=== PATIENT | male | born 1950 | race Caucasian/White ===

== ENCOUNTER 2022-05-25 00:05 | Inpatient (IN) | payer MEDICARE ==
[~2022-05-25] VITALS: Ht 172.7 cm; Wt 74.5 kg
[~2022-05-25 00:05] MED LIST: ACET325 PO; ALBUIS INH; ASPI325 PO; ASPI81CH PO; ATOR80 PO; BENZ100A PO; CARV25 PO; CLOP75 PO; COMBIVENT RESPIM4 GM IH; DOCU100 PO; FAMO40 PO; LISI5 PO; NAC600 MG PO; PRED10 PO
[2022-05-25 00:26] LABS: Hematocrit 38.4 % (37.0-53.0); Hemoglobin 12.2 g/dL (13.5-17.5); Mean Corpuscular HGB Conc 31.8 g/dL (31.5-36.5); Mean Corpuscular Volume 98 fL (80-100); Mean Platelet Volume 10.7 fL (9.1-12.4); NRBC ABSOLUTE 0.02 K/mm3 (0.00-0.02); NRBC Auto 0.2 /100 WBC (0.0-0.2); Platelet Count 55 K/mm3 (150-400); RDW Coefficient Variation 14.5 % (11.7-14.2); RDW Standard Deviation 52.5 fL (35.1-46.3); Red Blood Cell Count 3.93 M/mm3 (4.30-5.90); White Blood Cell Count 11.14 K/mm3 (4.00-11.30)
[2022-05-25 00:28] LABS: PCO2 Arterial 47.8 mmHg (35-45); PO2 Arterial >500 mmHg (80-100); pH Blood Arterial 7.06 (7.35-7.45)
[2022-05-25 00:42] LABS: Magnesium, Blood 3.9 mg/dL (1.6-2.4)
[2022-05-25 01:05] LABS: Albumin, Blood 2.4 g/dL (3.4-5.0); Albumin/Globulin Ratio 0.8 (0.8-1.8); Bilirubin, Total 0.4 mg/dL (0.1-1.0); Bun/Creatinine Ratio 14.8 (12.0-20.0); Calcium, Blood 7.4 mg/dL (8.5-10.1); Creatinine, Blood 1.69 mg/dL (0.60-1.20); Globulin, Blood 2.9 g/dL (2.2-4.0); Potassium, Blood 6.1 mmol/L (3.5-5.5); Total Protein, Blood 5.3 g/dL (6.4-8.2)
[2022-05-25 01:20] LABS: Source, Urine Foley catheter
[2022-05-25 01:41] LABS: BAND PERCENT MAN 3 % (0-8); BASOPHILS PERCENT MAN 0 % (0-2); EOSINOPHILS ABSOLUTE MAN 0.33 K/mm3 (0.00-0.68); EOSINOPHILS PERCENT MAN 3 % (0-6); LYMPHOCYTES ABSOLUTE MAN 4.23 K/mm3 (0.84-5.20); LYMPHOCYTES PERCENT MAN 38 % (21-46); METAMYELOCYTE ABSOLUTE MAN 0.11 K/mm3 (0.00-0.00); METAMYELOCYTE PERCENT MAN 1 % (0-0); MONOCYTES ABSOLUTE MAN 0.44 K/mm3 (0.16-1.47); MONOCYTES PERCENT MAN 4 % (4-13); NEUTROPHILS ABSOLUTE MAN 6.01 K/mm3 (1.96-9.15); SEG NEUTROPHILS PERCENT MAN 51 % (41-73); TOTAL CELLS COUNTED 100
[2022-05-25 01:42] LABS: U Amphetamine Screen Not Detected; U Barbituate Screen Not Detected; U Benzodiazapine Screen Not Detected; U Buprenorphine Screen Not Detected; U Cannabinoids Screen Not Detected; U Cocaine Screen Not Detected; U Methadone Screen Not Detected; U Methamphetamine Screen Not Detected; U Opiates Screen Not Detected; U Oxycodone Screen Not Detected; U Phencyclidine Screen Not Detected; U Propoxyphene Screen Not Detected
[2022-05-25 01:51] LABS: Appearance, Urine Cloudy (Clear); Bilirubin, Urine Neg (Neg); Blood, Urine 3+ (Neg); Color, Urine Yellow (P-Yellow); Glucose Qualitative, Urine Neg (Neg); Ketones, Urine Neg (Neg); Leukocyte Esterase, Urine Neg (Neg); Nitrite, Urine Neg (Neg); Protein, Urine 3+ (Neg); Urobilinogen, Urine NORM (Normal)
[2022-05-25 02:08] LABS: Bacteria Few /hpf; Red Blood Cells, Urine 25-50 /hpf (0-2); Spermatozoa Many /hpf; Squamous Epithelial Cells Few /hpf (Few); Transitional Epithelial Cells Few /hpf (0-Rare)
[2022-05-25 03:32] LABS: PCO2 Arterial 45.8 mmHg (35-45); PO2 Arterial 96.4 mmHg (80-100); pH Blood Arterial 7.23 (7.35-7.45)
[2022-05-25 06:08] LABS: Hematocrit 43.5 % (37.0-53.0); Mean Corpuscular HGB 30.7 pg (26.0-34.0); Mean Corpuscular HGB Conc 32.2 g/dL (31.5-36.5); Mean Corpuscular Volume 95 fL (80-100); Mean Platelet Volume 10.5 fL (9.1-12.4); Platelet Count 113 K/mm3 (150-400); RDW Coefficient Variation 14.6 % (11.7-14.2); RDW Standard Deviation 51.2 fL (35.1-46.3); Red Blood Cell Count 4.56 M/mm3 (4.30-5.90); White Blood Cell Count 16.44 K/mm3 (4.00-11.30)
[2022-05-25 06:46] LABS: Albumin, Blood 2.9 g/dL (3.4-5.0); Albumin/Globulin Ratio 0.9 (0.8-1.8); Bilirubin, Total 0.5 mg/dL (0.1-1.0); Bun/Creatinine Ratio 11.9 (12.0-20.0); Calcium, Blood 8.3 mg/dL (8.5-10.1); Creatinine, Blood 2.44 mg/dL (0.60-1.20); Globulin, Blood 3.3 g/dL (2.2-4.0); Potassium, Blood 6.3 mmol/L (3.5-5.5); Total Protein, Blood 6.2 g/dL (6.4-8.2)
--- NOTE | 2022-05-25 07:15 | NUR ---
PT INTUBATED AND SEDATED. TR BAND TO R RADIAL SITE WITH ARMBOARD, SITE CONFIRMED WITH NOC RN WITH BSR. TEMP PACER TO R GROIN, RATE 60, MA 5, MV 10. 100% PACED. ON EPI GTT, AMIO GTT, PROPOFOL AND FENTANYL. ECHO BEING DONE NOW.
--- NOTE | 2022-05-25 07:28 | NUR ---
CHRISTIAN VARGAS CALLED ABOUT CRITICAL LABS: TROP 395 AND K+ 6.3. ORDERED MEDS TO SHIFT PTS K+
[2022-05-25 07:56] LABS: BAND PERCENT MAN 2 % (0-8); BASOPHILS PERCENT MAN 0 % (0-2); EOSINOPHILS ABSOLUTE MAN 0.32 K/mm3 (0.00-0.68); EOSINOPHILS PERCENT MAN 2 % (0-6); LYMPHOCYTES ABSOLUTE MAN 1.64 K/mm3 (0.84-5.20); LYMPHOCYTES PERCENT MAN 10 % (21-46); MONOCYTES ABSOLUTE MAN 0.49 K/mm3 (0.16-1.47); MONOCYTES PERCENT MAN 3 % (4-13); NEUTROPHILS ABSOLUTE MAN 13.97 K/mm3 (1.96-9.15); SEG NEUTROPHILS PERCENT MAN 83 % (41-73); TOTAL CELLS COUNTED 100
[2022-05-25 11:33] LABS: Bun/Creatinine Ratio 11.8 (12.0-20.0); Calcium, Blood 7.9 mg/dL (8.5-10.1); Creatinine, Blood 2.55 mg/dL (0.60-1.20)
--- NOTE | 2022-05-25 11:45 | NUR ---
PT WAS SEDATED WITH FENTANYL AND PROPOFOL THIS AM. TURNED SEDATION OFF AND PT WOKE UP QUICKLY REACHING FOR ETT. PT STARTED GRIPPING HANDS ON COMMAND. EXTUBATED AROUND 0900 TO 4L NC. PT DOING WELL AND O2 TITRATED DOWN TO 2L. TR BAND TO R RADIAL. SITE HAS SOME BRUISING ABOVE AND BELOW THE BAND. IT ALSO APPEARS SWOLLEN BUT NOT TIGHT. CONFIRMED SITE WITH OFF GOING RN THIS AM DURING BSR. AT 0730 ATTEMPTED TO TAKE 1ML OF AIR OUT OF BAND BUT STARTED BLEEDING IMMEDIATELY. REPLACED 1ML OF AIR. DR. MOTTA TO BEDSIDE THIS AM AND VISUALIZED SITE WELL. INSTRUCTED TO WAIT AN HOUR BEFORE TRYING TO DEFLATE AGAIN, ALSO TO HOLD LOVENOX THIS AM. ARM BOARD IN PLACE WELL TO KEEP WRIST STRAIGHT. PT IS FORGETFUL ASKING SAME QUESTIONS OVER AND OVER. HAS SOME PAIN IN CHEST. DR. DALEY AWARE AND FENTANYL ORDERED. GOOD OUTCOME WITH FENTANYL. SISTER IN LAW AT BEDSIDE. SON VINNY UPDATED VIA PHONE.
--- NOTE | 2022-05-25 17:09 | NUR ---
CALLED DR. RUELAS ABOUT SOME BEATS FAILING TO SENSE WITH PACEMAKER. DR. RUELAS AT BEDSIDE AND ADJUSTED TEMP PACER TO 50 RATE, 10 OUTPUT, 5 SENSE.
--- NOTE | 2022-05-25 18:05 | NUR ---
SUMMARY PT EXTUBATED THIS AM. A/O TO PERSON AND FAMILY. WILL ASK THE SAME QUESTION OF "WHAT HAPPENED" OVER AND OVER BUT SEEMS TO BE SLOWING DOWN THIS EVENING. HAS SOME PAIN IN CHEST FROM CPR. FENTANYL GIVEN FOR PAIN WITH GOOD RESULT. PT ALSO HAS LARGE HERNIA TO L GROIN THAT BOTHERS HIM SOMETIMES. PT STATES IT IS NOT BOTHERING HIM ANY MORE THAN USUAL AT HOME. TEMP PACER TO R GROIN THAT DR. RUELAS ADJUSTED TODAY. R RADIAL ACCESS SITE IS STABLE AFTER TR BAND WAS REMOVED. ARM BOARD STILL IN PLACE. SOME BRUISING IN THUMB AND JUST ABOVE WHERE TR BAND WAS. SPO2 PROBE ON R HAND WITH GOOD WAVEFORM. PULSES PALPABLE. OFF CARDIAC GTTS. FAMILY AT BEDSIDE TODAY. SON VINNY UPDATED VIA PHONE.
--- NOTE | 2022-05-25 18:59 | NUR ---
RESP RATE INCREASING, LS CRACKLES WITH SLIGHT WHEEZE, AND UO DECREASED. SPOKE WITH DR. DALEY WHO IS ORDERING LASIX.
[2022-05-25 19:53] LABS: Base Excess Venous -4.1 mmol/L; Bicarbonate Venous 19.7 mmol/L (24.0-30.0); PCO2 Venous 54.5 mmHg (38-42); pH Blood Venous 7.24 (7.34-7.37)
--- NOTE | 2022-05-26 03:57 | NUR ---
PT CONFUSED THROUGHOUT THE NIGHT. FORGETTING SITUATION AND WHY HE CAME INTO THE HOSPITAL. NEEDING FREQUENT REMINDING AND REORIENTATION. VSS. AMIO GTT RESTARTED DUE TO PT APSIRATING WITH PO INTAKE. K+ STILL INCREASED AT START OF SHIFT SEE CHART. SHIFTED PT AGAIN AROUND 2100. NO OTHER SIGNIFICNANT EVENTS OR CHANGES THROUGHOUT THE NIGHT. VSS. PT IN NSR. DENIES CP. PACER STILL INTACT AND CONDUCTING/SENSING.
[2022-05-26 04:19] LABS: BASOPHILS ABSOLUTE AUTO 0.02 K/mm3 (0.00-0.23); BASOPHILS PERCENT AUTO 0 % (0-2); Hematocrit 36.7 % (37.0-53.0); Hemoglobin 12.7 g/dL (13.5-17.5); LYMPHOCYTES ABSOLUTE AUTO 0.58 K/mm3 (0.84-5.20); LYMPHOCYTES PERCENT AUTO 5 % (21-46); MONOCYTES PERCENT AUTO 5 % (4-13); Mean Corpuscular HGB 30.9 pg (26.0-34.0); Mean Corpuscular HGB Conc 34.6 g/dL (31.5-36.5); Mean Platelet Volume 11.8 fL (9.1-12.4); Platelet Count 58 K/mm3 (150-400); RDW Coefficient Variation 14.6 % (11.7-14.2); RDW Standard Deviation 47.8 fL (35.1-46.3); Red Blood Cell Count 4.11 M/mm3 (4.30-5.90); White Blood Cell Count 10.78 K/mm3 (4.00-11.30)
[2022-05-26 04:36] LABS: EOSINOPHILS PERCENT AUTO 0 % (0-6); IMMATURE GRAN ABSOLUTE AUTO 0.03 K/mm3 (0.00-0.10); IMMATURE GRAN PERCENT AUTO 0 % (0-1); Mean Corpuscular Volume 89 fL (80-100); NEUTROPHILS ABSOLUTE AUTO 9.65 K/mm3 (1.96-9.15); NEUTROPHILS PERCENT AUTO 90 % (41-73)
[2022-05-26 04:52] LABS: Albumin, Blood 2.2 g/dL (3.4-5.0); Albumin/Globulin Ratio 0.8 (0.8-1.8); Bilirubin, Total 0.9 mg/dL (0.1-1.0); Bun/Creatinine Ratio 13.3 (12.0-20.0); Calcium, Blood 8.1 mg/dL (8.5-10.1); Creatinine, Blood 3.54 mg/dL (0.60-1.20); Globulin, Blood 2.9 g/dL (2.2-4.0); Potassium, Blood 5.4 mmol/L (3.5-5.5); Total Protein, Blood 5.1 g/dL (6.4-8.2)
--- NOTE | 2022-05-26 08:58 | NUR ---
ASSUMED CARE PT IS ALERT AND ORIENTED X4. MAP >65 W/ HR IN THE 70-80'S. SPO2 >92% ON 2L NC. PT HAS CLEAR LUNG SOUNDS, HYPOACTIVE BOWEL TONES AND A LARGE INGUINAL HERNIA THAT HAS MILD PAIN PER PT. TEMPORARY PACEMAKER TO BE DC'D. AMIODARONE INFILTRATION NOTED; PHARMACY CONSULTED/DR CHAPA AWARE; HYALURONIDASE TO BE ADMINISTERED PER DR CHAPA/PHARMACY. PT HAS INCREASED WOB/RR SINCE INITIAL ASSUMPTION OF CARE AND IS NOTED TO NOT TOLERATE LYING SUPINE.
[2022-05-26 11:34] LABS: Albumin, Blood 2.2 g/dL (3.4-5.0); Anion Gap 9 mmol/L (6-16); Blood Urea Nitrogen 53 mg/dL (8-24); Bun/Creatinine Ratio 13.9 (12.0-20.0); CO2, Blood 21 mmol/L (21-32); Calcium, Blood 7.6 mg/dL (8.5-10.1); Chloride, Blood 109 mmol/L (98-108); Creatinine, Blood 3.81 mg/dL (0.60-1.20); Glomerular Filtration Rate 16 (60-); Glucose, Blood 118 mg/dL (70-99); Phosphorus, Blood 4.5 mg/dL (2.5-4.9); Potassium, Blood 5.7 mmol/L (3.5-5.5); Sodium, Blood 139 mmol/L (136-145)
[2022-05-26 12:14] LABS: PCO2 Arterial 39.5 mmHg (35-45); PO2 Arterial 70.4 mmHg (80-100); pH Blood Arterial 7.32 (7.35-7.45)
--- NOTE | 2022-05-26 15:56 | NUR ---
UPDATE/SHEATH REMOVAL PT IS ALERT AND ORIENTED W/ A BP OF 105/56. PT'S SHEATH WAS REMOVED W/ NO ISSUES. NO HEMATOMA, OOZING, OR C/O OF PAIN FROM SITE. WHILE PALPATING THE PT'S STOMACH THE PT NOTED THAT THERE WAS SOME MILD PAIN IN THE BOTTOM RIGHT QUADRANT/SIDE OF STOMACH.
--- NOTE | 2022-05-26 17:29 | NUR ---
SHIFT SUMMARY PT IS A&O X4. SPO2 >92% ON 2L NC; MAP >65. PT HAS C/O OF CP THAT IS DULL/LOCALIZED AND GETS WORSE W/ BREATHING; PT ALSO EXPIRIENCES PAIN W/ HIS INGUINAL HERNIA AND SOME MILD PAIN IN THE BOTTOM RIGHT QUADRANT/DISTAL STOMACH. CLEAR LUNG SOUNDS; HYPOACTIVE BOWEL TONES. SOME INCREASED WOB NOTED A FEW HOURS INTO THE AM; DR ORTEGA NOTIFIED AND CHEST XRAY ORDERED. WOB HAS SINCE BECOME LESS LABORED. PACER/SHEATH PULLED TODAY BY HVAC ENGINEER RN PER DR RUELAS'S ORDER; NO OOZING, HEMATOMA, OR NEW BRUISING NOTED. TR BAND SITE ABSENT OF OOZING, HEMATOMA, OR NEW BRUISING.
--- NOTE | 2022-05-26 23:36 | NUR ---
ASSUMPTION OF CARE/ASSESSMENT: ASSUMED CARE OF PT AT 1900. PT IS AWAKE AND A&O AT THIS TIME. PT IS PLEASANT AND SOFT SPOKEN, ABLE TO PARTICIPATE IN CONVERSATION APPROPRIATELY AND VOICE NEEDS. PERRLA BILATERALLY. PT CURRENTLY ON 4L VIA NC WITH RR 18-20 AND SPO2 98<; BREATHING IS EVEN, UNLABORED. PT HR IN THE 80'S WITH SBP 100-110; C/O CHEST PAIN THAT FEELS LIKE CONSTANT ACHE, R/T CHEST COMPRESSION. PT HAS HYPERACIVE BS; ABD MILDLY DISTENDED WITH TENDERNESS IN RLQ. PT DID HAVE LIQUID BM AROUND 2044 THAT RELIEVED THIS PAIN. PT HAS TEMP LUI IN PLACE AND DRAINING TO GRAVITY; URINE LIGHT YELLOW, CLEAR. 24-HOUR URINE COLLECTION IN PROGRESS. PT HAS 18G TO LAC AND 20G TO LFA. BICARB GTT @ 50 MLS/HR. BED LOWERED, CALL LIGHT, WILL CONTINUE TO MONITOR.
[2022-05-27 04:49] LABS: Hematocrit 29.7 % (37.0-53.0); Hemoglobin 10.1 g/dL (13.5-17.5); Mean Corpuscular HGB 30.7 pg (26.0-34.0); Mean Corpuscular Volume 90 fL (80-100); Mean Platelet Volume 11.9 fL (9.1-12.4); RDW Coefficient Variation 14.6 % (11.7-14.2); Red Blood Cell Count 3.29 M/mm3 (4.30-5.90); White Blood Cell Count 11.42 K/mm3 (4.00-11.30)
[2022-05-27 05:12] LABS: Alanine Aminotransfer (ALT/SGP 150 U/L (12-78); Albumin, Blood 1.8 g/dL (3.4-5.0); Albumin/Globulin Ratio 0.7 (0.8-1.8); Alk Phos 58 U/L (50-136); Anion Gap 10 mmol/L (6-16); Aspartate Aminotrans (AST/SGOT 78 U/L (12-37); Bilirubin, Total 0.9 mg/dL (0.1-1.0); Blood Urea Nitrogen 69 mg/dL (8-24); Bun/Creatinine Ratio 16.1 (12.0-20.0); CO2, Blood 25 mmol/L (21-32); Calcium, Blood 6.6 mg/dL (8.5-10.1); Chloride, Blood 105 mmol/L (98-108); Creatinine, Blood 4.28 mg/dL (0.60-1.20); Globulin, Blood 2.7 g/dL (2.2-4.0); Glomerular Filtration Rate 14 (60-); Glucose, Blood 129 mg/dL (70-99); Magnesium, Blood 2.1 mg/dL (1.6-2.4); Potassium, Blood 4.3 mmol/L (3.5-5.5); Sodium, Blood 140 mmol/L (136-145); Total Protein, Blood 4.5 g/dL (6.4-8.2)
[2022-05-27 05:26] LABS: Platelet Count 33 K/mm3 (150-400)
[2022-05-27 05:36] LABS: BAND PERCENT MAN 24 % (0-8); BASOPHILS PERCENT MAN 0 % (0-2); EOSINOPHILS PERCENT MAN 0 % (0-6); LYMPHOCYTES ABSOLUTE MAN 0.11 K/mm3 (0.84-5.20); LYMPHOCYTES PERCENT MAN 1 % (21-46); METAMYELOCYTE ABSOLUTE MAN 0.22 K/mm3 (0.00-0.00); METAMYELOCYTE PERCENT MAN 2 % (0-0); MONOCYTES ABSOLUTE MAN 0.22 K/mm3 (0.16-1.47); MONOCYTES PERCENT MAN 2 % (4-13); NEUTROPHILS ABSOLUTE MAN 10.84 K/mm3 (1.96-9.15); SEG NEUTROPHILS PERCENT MAN 71 % (41-73); TOTAL CELLS COUNTED 100
--- NOTE | 2022-05-27 06:23 | NUR ---
SHIFT SUMMARY: NO ACUTE CHANGES THIS SHIFT. VSS THROUGHOUT THE NIGHT. PT SLEPT ON AND OFF THROUGHOUT THE NIGHT. PT HAD COUGHING FIT STARTING AROUND 0300; PT STATES THAT CHEST PAIN INCREASES TO 9/10 WHEN COUGHING. PT MEDICATED PER EMAR WITH 25 MCG FENTANYL AND PT RESPONDED WELL. AT 0400 ASSESSMENT PT DEVELOPED RHONCI IN RLL; SPO2 REMAINED 98< AND RR 20-24. DR ROBBINS AT BEDSIDE TO ASSESS PT @ 0620; VERBAL ORDERS RECIEVED, SEE EMAR. PT CONTINUES TO USE CALL LIGHT APPROPRIATELY, BED LOWERED, WILL CONTINUE TO MONITOR UNTIL ONCOMING RN ARRIVES.
--- NOTE | 2022-05-27 07:30 | NUR ---
ASSUMED CARE OF PT THIS AM PT. ALERT AND ORIENTED THIS AM. PT HAS OCCASIONAL NON PRODUCTIVE WET COUGH. SPLINTING WITH PILLOW BUT STILL HAVING PAIN 10/10 WHEN COUGHING. PT. REMAINS NPO AT THIS TIME, AWAITING SPEECH THERAPY. WET SWABS PROVIDED. PT. NEEDING ASSISTANCE TO SHIFT HIPS IN BED FOR COMOFORT. LUI DRAINING TO GRAVITY, CURRENTLY HAS 24HR URINE IN PROGRESS. ALL NEEDS MET AT THIS TIME.
[2022-05-27 09:51] LABS: Hematocrit 32.7 % (37.0-53.0); Mean Corpuscular HGB 30.5 pg (26.0-34.0); Mean Corpuscular HGB Conc 33.6 g/dL (31.5-36.5); Mean Corpuscular Volume 91 fL (80-100); Mean Platelet Volume 11.8 fL (9.1-12.4); RDW Coefficient Variation 14.7 % (11.7-14.2); RDW Standard Deviation 48.5 fL (35.1-46.3); Red Blood Cell Count 3.61 M/mm3 (4.30-5.90); White Blood Cell Count 9.26 K/mm3 (4.00-11.30)
[2022-05-27 09:58] LABS: Platelet Count 38 K/mm3 (150-400)
[2022-05-27 10:12] LABS: BAND PERCENT MAN 28 % (0-8); BASOPHILS PERCENT MAN 0 % (0-2); EOSINOPHILS PERCENT MAN 0 % (0-6); METAMYELOCYTE ABSOLUTE MAN 0.18 K/mm3 (0.00-0.00); METAMYELOCYTE PERCENT MAN 2 % (0-0); MONOCYTES ABSOLUTE MAN 0.18 K/mm3 (0.16-1.47); MONOCYTES PERCENT MAN 2 % (4-13); MYELOCYTE ABSOLUTE MAN 0.09 K/mm3 (0.00-0.00); MYELOCYTE PERCENT MAN 1 % (0-0); NEUTROPHILS ABSOLUTE MAN 8.79 K/mm3 (1.96-9.15); SEG NEUTROPHILS PERCENT MAN 67 % (41-73); TOTAL CELLS COUNTED 100
--- NOTE | 2022-05-27 10:49 | NUR ---
UDPATE DR. CHAPA AT BEDSIDE TO EVAL, CHEST XRAY ORDERED. PT. CLEARED BY SPEECH THERAPY FOR THICKEND LIQUIDS AND MEAL TRAY ORDERED.
[2022-05-27 12:18] LABS: Protein, Urine Quantitative 18.6 mg/dL (0.0-11.9)
--- NOTE | 2022-05-27 18:05 | NUR ---
SHIFT SUMMARY PT. FAMILY AT BEDSIDE T/O THE DAY. NO ACUTE CHANGES TODAY. O2 TITRATED DOWN TO 4LNC, PT PAINFUL WITH MOVEMENT, PO PAIN MEDICATION STARTED TODAY TO HELP WITH PAIN AND CONTINUES WITH FENTANYL PRN. 24HR URINE COMPLETED TODAY. MULTIPLE LOOSE BMS TODAY. LUI REMAINS IN PLACE, DRIANING TO GRAVITY. CALL LIGHT IN REACH. ALL NEEDS MET AT THIS TIME, REPORT TO ONCOMING HIPOLITO
--- NOTE | 2022-05-27 19:56 | NUR ---
ASSUMPTION OF CARE/ASSESSMENT: ASSUMED CARE OF PT AT 1900. PT IS ASLEEP IN BED AND WAKES EASILY; A&O X 4 AND ABLE TO PARTICIPATE IN CONVERSATION APPROPRIATELY, SOFT SPOKEN. PT USING CALL LIGHT APPROPRIATELY AT THIS TIME. PT CURRENTLY ON NC @ 2L WITH SPO2 90<; HX COPD. RR 20-26, CHEST PAIN 5/10 R/T CHEST COMPRESSIONS. CHEST PAIN INCREASES TO 9/10 WHEN COUGHING, PT COACHED ON SPLINTING COUGHING WITH PILLOW AND HELPS TO RELIEVE SOME OF THE PAIN. PT HAS SHALLOW BREATHS, BUT EVEN WITH CLEAR LUNG SOUNDS. PT HR 70'S AND SBP 100'S. ABD IS ROUND, SLIGHTLY FIRM BUT NOT TENDER; PT HAS CHRONIC INGUNIENAL HERNIA THAT DOES NOT CAUSE HIM MUCH PAIN. HYPOACTIVE BS IN ALL QUADRANTS. PT USING BED KIDD FOR BOWEL MOVEMENTS. PT HAS TEMP LUI THAT IS IN PATENT AND DRAINING TO GRAVITY. ULTRASOUND COMPLETED AT 1999 AND PT TO RESUME MECHANICAL SOFT/THICKEN LIQUID DIET. CALL LIGHT IN REACH, BED LOWERED. PT HAS TRANSFER ORDERS FOR PCU 1 JUST WAITING ON ROOM TO BE CLEANED. WILL CONTINUE TO MONITOR UNTIL TRANSFER.
--- NOTE | 2022-05-27 22:13 | NUR ---
PT TRANSFERRED: PT TRANSFERRED TO [facility] @ 1062. ALL PT BELONGING SENT WITH PT. REPORT GIVEN TO TULIO SUPERVISOR LEAF [employer]ING REPAIR TO ASSUME CARE OF PT.
--- NOTE | 2022-05-27 22:43 | NUR ---
ASSUMED CARE PT FROM ICU 6 TO PCU 1, PT IS AWAKE, A&O X4, RESP UNLABORED/SHALLOW, SPO2 93% ON 2L O2 VIA NC, IV ABX INFUSING. PT WAS ABLE TO STAND PIVOT TRANSFER TO THE BED. PT MEDICATED WITH PO NORCO PER EMAR, THICKENED OJ GIVEN PER PT REQUEST. CALL LIGHT IN REACH, BED IN LOW POSITION. WCTM
--- NOTE | 2022-05-28 04:53 | NUR ---
SHIFT SUMMARY PT REMAINS A&O X4, VSS, USING CALL LIGHT PRN. RESP SHALLOW DUE TO PAIN, SMALL WHEEZE NOTED IN BILAT BASE, PT ENC TO DB&C USING STERNAL PRECAUTIONS, HE IS CURRENTLY ON 2L O2 VIA NC, SPO2 >92%. PO NORCO FOR PAIN PRN PER EMAR, PT IS TOLERATING NECTAR THICK FLUIDS, REPOSITIONED PRN, PREFERS SUPINE W/HOB ELEVATED, 450 ML'S OF YELLOW URINE. BED IN LOW POSITION, CALL LIGHT IN REACH, WCTM & REPORT TO ONCOMING RN.
[2022-05-28 06:18] LABS: Hematocrit 27.4 % (37.0-53.0); Hemoglobin 9.4 g/dL (13.5-17.5)
[2022-05-28 08:05] LABS: Albumin, Blood 1.8 g/dL (3.4-5.0); Anion Gap 11 mmol/L (6-16); Blood Urea Nitrogen 97 mg/dL (8-24); Bun/Creatinine Ratio 19.8 (12.0-20.0); CO2, Blood 22 mmol/L (21-32); Calcium, Blood 5.9 mg/dL (8.5-10.1); Chloride, Blood 107 mmol/L (98-108); Creatinine, Blood 4.89 mg/dL (0.60-1.20); Glomerular Filtration Rate 12 (60-); Glucose, Blood 146 mg/dL (70-99); Phosphorus, Blood 6.4 mg/dL (2.5-4.9); Potassium, Blood 4.1 mmol/L (3.5-5.5); Sodium, Blood 140 mmol/L (136-145)
[2022-05-28 12:48] LABS: Albumin, Blood 1.5 g/dL (3.4-5.0); Anion Gap 10 mmol/L (6-16); Blood Urea Nitrogen 98 mg/dL (8-24); CO2, Blood 23 mmol/L (21-32); Calcium, Blood 6.9 mg/dL (8.5-10.1); Chloride, Blood 110 mmol/L (98-108); Creatinine, Blood 4.67 mg/dL (0.60-1.20); Glomerular Filtration Rate 13 (60-); Glucose, Blood 148 mg/dL (70-99); Phosphorus, Blood 5.6 mg/dL (2.5-4.9); Sodium, Blood 143 mmol/L (136-145)
--- NOTE | 2022-05-28 19:06 | NUR ---
SHIFT SUMMARY PATIENT ORIENTED WITH OCCASIONAL FORGETFULNESS. WEAK AND FATIGUED WITH FREQUENT NAPS. MAIN COMPLAINT IS CHEST PAIN FROM CPR. MAINTAINS SATS ABOVE 90% ON 2L. SHALLOW BREATHING, SPLINTS WITH PILLOW FOR COUGHS. SBA WITH FWW UP TO COMMODE. LUI PATENT AND DRAINING. TOLERATING SMALL AMOUNTS OF PO INTAKE. KIDNEY FUNCTION REMAINS POOR. DR ROBBINS CONSULTED. CARDIOLOGY CONSULTED, PATIENT NEEDS A CABG BUT THAT IS ON HOLD UNTIL KIDNEY FUNCTION RETURNS. SON AND BROTHER WERE PRESENT IN ROOM DURING AFTERNOON. LOW CALCIUM ON AM LABS WAS REPLACED. MEDICATED FOR CHEST PAIN PRN.
[2022-05-29 04:31] LABS: Hematocrit 24.1 % (37.0-53.0); Hemoglobin 8.4 g/dL (13.5-17.5); Mean Corpuscular HGB 30.5 pg (26.0-34.0); Mean Corpuscular HGB Conc 34.9 g/dL (31.5-36.5); Mean Corpuscular Volume 88 fL (80-100); Mean Platelet Volume 12.6 fL (9.1-12.4); RDW Coefficient Variation 14.5 % (11.7-14.2); RDW Standard Deviation 46.1 fL (35.1-46.3); Red Blood Cell Count 2.75 M/mm3 (4.30-5.90); White Blood Cell Count 11.72 K/mm3 (4.00-11.30)
[2022-05-29 04:58] LABS: Magnesium, Blood 2.2 mg/dL (1.6-2.4)
[2022-05-29 04:59] LABS: Albumin, Blood 1.6 g/dL (3.4-5.0); Albumin/Globulin Ratio 0.6 (0.8-1.8); Bilirubin, Total 0.6 mg/dL (0.1-1.0); Bun/Creatinine Ratio 20.3 (12.0-20.0); Calcium, Blood 6.5 mg/dL (8.5-10.1); Creatinine, Blood 5.42 mg/dL (0.60-1.20); Globulin, Blood 2.7 g/dL (2.2-4.0); Phosphorus, Blood 5.6 mg/dL (2.5-4.9); Potassium, Blood 4.5 mmol/L (3.5-5.5); Total Protein, Blood 4.3 g/dL (6.4-8.2)
[2022-05-29 05:37] LABS: Platelet Count 34 K/mm3 (150-400)
[2022-05-29 05:59] LABS: BAND PERCENT MAN 13 % (0-8); BASOPHILS PERCENT MAN 0 % (0-2); EOSINOPHILS PERCENT MAN 0 % (0-6); LYMPHOCYTES ABSOLUTE MAN 0.46 K/mm3 (0.84-5.20); LYMPHOCYTES PERCENT MAN 4 % (21-46); METAMYELOCYTE ABSOLUTE MAN 0.11 K/mm3 (0.00-0.00); METAMYELOCYTE PERCENT MAN 1 % (0-0); MONOCYTES ABSOLUTE MAN 0.46 K/mm3 (0.16-1.47); MONOCYTES PERCENT MAN 4 % (4-13); NEUTROPHILS ABSOLUTE MAN 10.66 K/mm3 (1.96-9.15); SEG NEUTROPHILS PERCENT MAN 78 % (41-73); TOTAL CELLS COUNTED 100
--- NOTE | 2022-05-29 07:19 | NUR ---
SUMMARY PT HAS BEEN A&O X3 THROUGH THE NIGHT, OCCASIONAL CONFUSION NOTED BUT REORIENTS QUICKLY, PT HAS BEEN REALLY SLEEPY AND WEAK, VSS, NSR IN THE 60'S, CP DUE TO CPR, SPO2 >93% ON 2 L VIA NC, NORCO GIVEN X 1 FOR PAIN, TRIED TO USE ALTERNATIVE METHODS FOR PAIN DUE TO INCREASED SLEEPYNESS & PENDING RENAL LABS. LABS HAVE NOT IMPROVED THIS AM, CHARGE NURSE NOTIFIED, REPORT GIVEN TO DAY RN, PT RESTING QUIETLY AT THIS TIME, RESP UNLABORED, CALL LIGHT IN REACH.
--- NOTE | 2022-05-29 07:30 | NUR ---
PT IS A&OX4. REPORTS 12/20 "CHEST" PAIN. MED WITH NORCO-SEE EMAR. PT IS GENERALLY WEAK AND DECONDITIONED. ECG SHOWS SR WITH RATE 60-80'S. BP STABLE. TRACE GENERALIZED EDEMA NOTED. EXTREMITIES DISCOLORED BROWNISH APPEARANCE. DP/PT PULSES FAINT, BUT PALPABLE. LUNGS DIMINISHED IN THE BASES, BUT SATS>90% ON 2 LITERS NASAL CANULA. MILD SOB WITH EXERTION. PT DENIES GI DISTRESS. LUI TO BSD WITH SMALL AMOUNT OF DARK, YELLOW URINE TO UROMETER-24 HOUR URINE TO BEGIN @ 0800. DR. ROBBINS HAS REQUESTED THAT CRITICAL CARE MD PLACE DIALYSIS CATHETER. MD NOTIFIED BY BRANDON-PARTY COORDINATOR PCU. JUAN DAVID AND CATH CARE COMPLERED-PT HAS LEFT INGUINAL HERNIA NOTED. SKIN IS THIN AND FRAIL WITH SCATTERED BRUISES TO UPPER EXTREMITIES. DISCUSS WITH PT PLAN OF CARE AND NEED FOR DIALYSIS CATHETER. PT STATES THAT HE IS GRATEFUL TO BE ALIVE AND THAT HE WANTS EVERYTHING TO BE DONE TO SAVE HIM.
--- NOTE | 2022-05-29 11:30 | NUR ---
PT CONTINUES TO REPORT 7/10 CHEST PAIN. MED WITH FENTANYL 25 MCG IVP X 1 FOR PAIN-SEE EMAR. VSS. TYPE AND SCREEN COMPLETE. AWAITING 1 UNIT PLATELETS TO BE TRANSFUSED ONCE AVAILABLE. PT SON VINNY UPDATED. PT AND HIS SON VERBALLY CONSENT TO TRIALYSIS CATHETER PLACEMENT ONCE PLT PHARESIS IS COMPLETE. RN TO CALL DR. SANTACRUZ ONCE PLTS COMPLETED. SHAILA FROM DIALYSIS AWARE THAT TEMPORARY DIALYSIS CATHETER BEING PLACED. PT BOOSTED IN BED. HEELS AND HEELS FLOATED. PT VISITING WITH HIS SON AND [id number]. CALL LIGHT WITHIN REACH.
--- NOTE | 2022-05-29 13:45 | NUR ---
1 UNIT PLATELET PHARESIS COMPLETED. AFTER TIME OUT DONE, PT MED WITH VERSED 2 MG IVP X 1 AND FENTANYL 25 MCG IVP X 1 FOR TRIALYSIS CATHETER PLACEMENT. PT SATS TO 82% ON 2 LITERS-JAW THRUST/FIO2 INCREASED TO 6 LITERS AND SATS >90%. RIGHT FEMORAL TRIALYSIS CATHETER SUCCESSFULLY PLACED AND SHAILA FROM DIALYSIS MADE AWARE. PLAN FOR DIALYSIS IMMEDIATELY.
--- NOTE | 2022-05-29 13:52 | NUR ---
HEMODIALYSIS INITIATED. PT IS DROWSY, BUT AWAKENS TO VOICE. CULLET CRUSHER AND WASHER-SHAILA @ BEDSIDE.
--- NOTE | 2022-05-29 15:24 | NUR ---
PT RESTING QUIETLY WHEN NOT DISTURBED. AWAKENS EASILY TO VOICE. STILL UNDERGOING DIALYSIS. VSS. NO ACUTE DISTRESS NOTED.
--- NOTE | 2022-05-29 16:30 | NUR ---
PT AWAKE AND ALERT AND VISITING WITH FAMILY. PT REPORTS 6/10 CHEST PAIN. MED WITH NORCO PO-SEE EMAR. PALLIATIVE CARE RN DISCUSSING POLST/ADVANCED CARE PLANNING WITH PT AND HIS SON. PT HAS MOIST, NONPRODUCTIVE COUGH. ORAL CARE DONE AND YANKEUR SUCTIONED A SMALL AMOUNT OF THICK, BROWN SPUTUM.
--- NOTE | 2022-05-29 17:20 | NUR ---
Called to pt's room as pt and his son have questions about advanced care planning and forms that may need to be filled out. Pt was medicated with pain medication recently, so he is drowsy. Directed conversation about advanced care planning forms with pt and his son, Petr. Davin had his first HD session today. He verbalizes his request to have full treatments and be a full code at this time. Petr confirms that these are his dad's wishes which they have been discussing over the past day. Discussed POLST form and the advanced directives booklet. Answered questions. Davin and Petr will plan to have continued conversations about Davin's wishes and will work on the paperwork together when Davin is more alert. Petr reports Davin's (Petr's mom) several years ago. Petr is an only child. [place] and Petr expressed gratitude for the forms and information provided. Will have PC follow up with assistance in filling out forms if family desires help.
[2022-05-30 03:47] LABS: Hematocrit 23.5 % (37.0-53.0); Hemoglobin 8.1 g/dL (13.5-17.5); Mean Corpuscular HGB 30.7 pg (26.0-34.0); Mean Corpuscular HGB Conc 34.5 g/dL (31.5-36.5); Mean Corpuscular Volume 89 fL (80-100); Mean Platelet Volume 11.3 fL (9.1-12.4); Platelet Count 65 K/mm3 (150-400); RDW Coefficient Variation 14.2 % (11.7-14.2); RDW Standard Deviation 46.3 fL (35.1-46.3); Red Blood Cell Count 2.64 M/mm3 (4.30-5.90); White Blood Cell Count 12.13 K/mm3 (4.00-11.30)
[2022-05-30 04:00] LABS: Albumin, Blood 1.8 g/dL (3.4-5.0); Anion Gap 9 mmol/L (6-16); Blood Urea Nitrogen 74 mg/dL (8-24); Bun/Creatinine Ratio 18.2 (12.0-20.0); CO2, Blood 28 mmol/L (21-32); Calcium, Blood 6.5 mg/dL (8.5-10.1); Chloride, Blood 102 mmol/L (98-108); Creatinine, Blood 4.07 mg/dL (0.60-1.20); Glomerular Filtration Rate 15 (60-); Glucose, Blood 161 mg/dL (70-99); Magnesium, Blood 2.1 mg/dL (1.6-2.4); Phosphorus, Blood 5.5 mg/dL (2.5-4.9); Potassium, Blood 4.1 mmol/L (3.5-5.5); Sodium, Blood 139 mmol/L (136-145)
--- NOTE | 2022-05-30 04:41 | NUR ---
END OF SHIFT SUMMARY NEURO: PT A&OX4. NO C/O NUMBNESS/TINGLING, HEADACHE OR VISION CHANGES. FULL SENSATION IN ALL FOUR EXTREMITIES. LIMB STRENGTH: ABLE TO OVERCOME RESISTANCE. MUSCULOSKELETAL: GENERALIZED WEAKNESS. WEAK GAIT. MOVEMENT TO BEDSIDE COMMODE WITH WALKER. RESPIRATORY: 2L NC OVERNIGHT SATTING > 95%. SHALLOW RESPIRATIONS D/T CONSTANT STERNAL PAIN. PT STATES TAKING DEEP BREATHS HURT TO MUCH. INTERMITTENT RHONCHI APPRECIATED IN BILATERAL UPPER LOBES. BILATERAL LOWER LOBES ARE COARSE AND DIMINISHED. PT HAS A NON PRODUCTIVE LOOSE COUGH. CARDIAC: NSR. HR 60s-70s. BP AVERAGING 140s/60s MAPS >65. COMPLAINS OF CONSTANT CHEST PAIN S/P CPR. MANAGING WITH PRN MEDICATIONS. GI/: CONTINENT OF BOWELS. ONE LOOSE BROWN STOOL OVERNIGHT. NORMOACTIVE BOWEL SOUNDS AND ABDOMEN NONTENDER TO PALPATION. LUI CATHETER IN PLACE AND SECURED TO LEG. DRAINING TO GRAVITY AND NO DEPENDENT LOOPS. PUTTING OUT ADEQUATE AMOUNTS OF CLEAR YELLOW URINE. INTEGUMENTARY: LARGE BRUISE NOTED TO RIGHT FOREARM. DIFFUSE SMALLER BRUISING NOTED TO BUE. SKIN FRAGILE AND DRY. COCCYX CLEAR. LINES: LEFT FOREARM PIV AND RIGHT FEMORAL TRIALYSIS. FLUSHES AND DRAWS BACK.
[2022-05-30 05:31] LABS: BAND PERCENT MAN 4 % (0-8); BASOPHILS PERCENT MAN 0 % (0-2); EOSINOPHILS PERCENT MAN 0 % (0-6); LYMPHOCYTES ABSOLUTE MAN 0.48 K/mm3 (0.84-5.20); LYMPHOCYTES PERCENT MAN 4 % (21-46); MONOCYTES PERCENT MAN 5 % (4-13); NEUTROPHILS ABSOLUTE MAN 11.03 K/mm3 (1.96-9.15); SEG NEUTROPHILS PERCENT MAN 87 % (41-73); TOTAL CELLS COUNTED 100
--- NOTE | 2022-05-30 08:00 | NUR ---
PT A&OX4. REPORTS 7/10 STERNAL PAIN. MED WITH NORCO PO-SEE EMAR. ECG SHOWS SR WITH RATE 60'S. BP STABLE. LUNGS DIMINISHED IN THE BASES. OCCASIONAL MOIST,NON PRODUCTIVE COUGH. SATS>90% ON 2 LITERS NASAL CANULA. NO GI DISTRESS. ASSISTED PT OOB TO [facility] [place] WHERE HE HAD A MEDIUM SIZED, SOFT, BROWN STOOL. JUAN DAVID AND CATH CARE DONE, MCKINLEY CHANGED. RIGHT FEMORAL DIALYSIS CATHETER SITE OOZING BLOOD. DRESSING CHANGE COMPLETED. 24 HOUR URINE SENT TO LAB. LUI DRAINING ADEQUATE AMOUNT OF CLEAR, YELLOW URINE. ANTICIPATE DIALYSIS THIS AM.
--- NOTE | 2022-05-30 09:35 | NUR ---
PT TRANSPORTED TO DIALYSIS CENTER VIA BED. RESULTS FROM RIGHT LOWER EXTREMITY RECEIVED FROM PUSHPA ANGIOGRAPHER. DR. ASIF UPDATED.
--- NOTE | 2022-05-30 12:30 | NUR ---
PT RETURNED FROM DIALYSIS. A&OX4. PT CONTINUES TO REPORT 7/10 STERNAL PAIN. PT STATES THAT HE HAS BEEN COUGHING MORE FREQUENTLY AND THAT HIS COUGH IS GETTING STRONGER, BUT HE IS STILL UNABLE TO COUGH UP ANY SPUTUM. SATS>90% ON 2 LITERS NASAL CANULA. NO NOTED RESPIRATORY DISTESS. PT STATES THAT HE IS "STARVING!" LUNCH TRAY PROVIDED. CALL LIGHT WITHIN REACH.
--- NOTE | 2022-05-30 15:30 | NUR ---
RIGHT FEMORAL DRESSING SATURATED IN BLOOD. DRESSING CHANGE COMPLETED. CRISSY PATCH PLACED OVER INSERTION SITE, THEN CHG DRESSING APPLIED. JUAN DAVID CARE DONE, MCKINLEY CHANGED, AND PT HIPS AND HEELS FLOATED. PT REPORTS 7/10 STERNAL PAIN. MED WITH NORCO PO-SEE EMAR.
--- NOTE | 2022-05-30 18:10 | NUR ---
RIGHT FEMORAL DIALYSIS CATHETER SITE CONTINUES TO OOZE BLOOD-THE DRESSING HAS BEEN CHANGED SEVERAL TIMES THROUGH OUT THE SHIFT. DR. SANTACRUZ UPDATED. STAT PT/PTT, FIBRINOGEN, CBC DRAWN AND SENT TO LAB. 1 PLT PHARESIS PACK ORDERED. DRESSING CHANGE COMPLETED AND FEMSTOP PLACED, BUT CUFF NOT INFLATED. PT REPORTS 12/20 STERNAL PAIN-MED WITH FENTANYL 25 MCG IVP X 1-SEE EMAR.
[2022-05-30 18:47] LABS: BASOPHILS ABSOLUTE AUTO 0.02 K/mm3 (0.00-0.23); BASOPHILS PERCENT AUTO 0 % (0-2); EOSINOPHILS PERCENT AUTO 0 % (0-6); Hematocrit 20.2 % (37.0-53.0); Hemoglobin 7.1 g/dL (13.5-17.5); IMMATURE GRAN ABSOLUTE AUTO 0.23 K/mm3 (0.00-0.10); IMMATURE GRAN PERCENT AUTO 2 % (0-1); LYMPHOCYTES ABSOLUTE AUTO 0.68 K/mm3 (0.84-5.20); LYMPHOCYTES PERCENT AUTO 5 % (21-46); MONOCYTES ABSOLUTE AUTO 0.96 K/mm3 (0.16-1.47); MONOCYTES PERCENT AUTO 7 % (4-13); Mean Corpuscular HGB 30.5 pg (26.0-34.0); Mean Corpuscular HGB Conc 35.1 g/dL (31.5-36.5); Mean Corpuscular Volume 87 fL (80-100); Mean Platelet Volume 11.6 fL (9.1-12.4); NEUTROPHILS ABSOLUTE AUTO 11.18 K/mm3 (1.96-9.15); NEUTROPHILS PERCENT AUTO 86 % (41-73); NRBC ABSOLUTE 0.02 K/mm3 (0.00-0.02); NRBC Auto 0.2 /100 WBC (0.0-0.2); Platelet Count 59 K/mm3 (150-400); RDW Coefficient Variation 13.9 % (11.7-14.2); RDW Standard Deviation 43.7 fL (35.1-46.3); Red Blood Cell Count 2.33 M/mm3 (4.30-5.90); White Blood Cell Count 13.07 K/mm3 (4.00-11.30)
--- NOTE | 2022-05-30 19:15 | NUR ---
REPORT GIVEN TO HIPOLITO KIRK. RIGHT FEMORAL SITE WITH SMALL AMOUNT OF OOZING NOTED. DP/PT PULSES PALPABLE.
[2022-05-30 20:23] LABS: International Normalized Ratio 1.4; Prothrombin Time Results 14.4 Sec (9.7-11.5)
[2022-05-30 20:35] LABS: Hematocrit 22.7 % (37.0-53.0); Hemoglobin 7.9 g/dL (13.5-17.5)
--- NOTE | 2022-05-30 21:36 | NUR ---
ASSUMPTION OF CARE/ASSESSMENT: ASSUMED CARE OF PT AT 1900. PT IS A&O X 4; PT VERY PLEASANT AND PARTICIPATES IN CONVERSATIONS APPROPRIATELY. PT CURRENTLY ON NC @ 2LPM; LUNG SOUNDS ARE CLEAR WITH DIM BASES. SPO2 92< AND RR 20-24. PT HAS C/O CHEST PAIN 5-7/10 R/T CHEST COMPRESSION; PT DENIES PAIN MEDS AT THIS TIME STATING HE IS COMFORTABLE AND PAIN IS TOLERABLE. PT ON TELE WITH HR IN THE 60'S AND SBP 150'S; FREQUENT PVC'S ON MONITOR. PT GOT 1 BAG OF PLATELETS TRANSFUSED AT THIS START OF THE SHIFT; H&H RECHECKED AND MEASURING AT 7.9. PT HAS HYPERACTIVE BS IN ALL QUADRANTS; ABD SOFT, NON-TENDER. PT HAS LUI CATH IN PLACE AND DRAINING TO GRAVITY. PT HAS A TRIALYSIS CATHETER IN R. FEMORAL ARTERY THAT WAS PLACED A FEW DAYS AGO; BLEEDING AT SITE IS NOTED AND THERE IS A FEM STOP IN PLACE THAT IS NOT INFLATED JUST FASTENED. PT HAS EXTENSIVE BRUISING IN RFA R/T ANGIOGRAM. PPP X 4, WARM EXTREMITIES. PT HAS INGUINAL HERNIA THAT HE STATES HAS BEEN THERE FOR A COUPLE YEARS; PT STATES PAIN HAS BEEN SLOWING INCREASES IN THAT REGION SINCE ADMISSION. PT USING CALL LIGHT APPROPRIATELY, WILL CONTINUE TO MONITOR.
--- NOTE | 2022-05-31 00:20 | NUR ---
PT UPDATE: TRIALYSIS CATHETER DRESSING CHANGE COMPLETED. DRESSING WAS SATURATED AND BLEEDING THROUGH DRESSING. CRISSY DRESSING PLACED AND TEGADERM PLACED OVER SITE DRESSING. FEM STOP IN PLACE ALONG WITH A 5 LB SAND BAG. WILL CONTINUE TO MONITOR FOR CONTINUED BLEEDING. VSS AT THIS TIME, DISTAL EXTREMITIY SENSATION INTACT WITH PALPABLE PEDAL PULSES.
[2022-05-31 04:14] LABS: Hematocrit 23.7 % (37.0-53.0)
[2022-05-31 04:37] LABS: Magnesium, Blood 2.1 mg/dL (1.6-2.4)
[2022-05-31 04:38] LABS: Albumin, Blood 1.9 g/dL (3.4-5.0); Anion Gap 6 mmol/L (6-16); Blood Urea Nitrogen 56 mg/dL (8-24); Bun/Creatinine Ratio 16.2 (12.0-20.0); CO2, Blood 32 mmol/L (21-32); Calcium, Blood 7.1 mg/dL (8.5-10.1); Chloride, Blood 101 mmol/L (98-108); Creatinine, Blood 3.46 mg/dL (0.60-1.20); Glomerular Filtration Rate 18 (60-); Glucose, Blood 117 mg/dL (70-99); Phosphorus, Blood 3.6 mg/dL (2.5-4.9); Sodium, Blood 139 mmol/L (136-145)
[2022-05-31 05:14] LABS: Mean Platelet Volume 10.8 fL (9.1-12.4); Platelet Count 97 K/mm3 (150-400)
--- NOTE | 2022-05-31 06:24 | NUR ---
SHIFT SUMMARY: NO ACUTE CHANGES THIS SHIFT. PT FEMORAL TRIALYSIS CATH SITE CONTINUES TO OOZE BLOOD; THE BLEEDING IS SLOWING DOWN BUT TWO DRESSING CHANGES CONDUCTED THIS SHIFT. PLT IMPROVING AND ARE NOW 98. PT HAD CONTINUOUS COMPLAINTS OF PAIN SO MEDICATED PER EMAR THROUGHOUT THE SHIFT. WILL CONTINUE TO MONITOR UNTIL ONCOMING RN ARRIVES.
--- NOTE | 2022-05-31 07:00 | NUR ---
ASSUME CARE: I have assumed care of this patient.
[2022-05-31 10:08] LABS: HBSAG SCREEN Negative (Negative); HCV AB <0.1 (0.0-0.9); HEP A AB, IGM Negative (Negative); HEP B CORE AB, IGM Negative (Negative)
[2022-05-31 13:08] LABS: IMMUNOGLOBULIN A, QN, SERUM 213 mg/dL (61-437); IMMUNOGLOBULIN G, QN, SERUM 540 mg/dL (603-1613); IMMUNOGLOBULIN M, QN, SERUM 19 mg/dL (15-143)
--- NOTE | 2022-05-31 17:35 | NUR ---
SHIFT SUMMARY: Pt to dialysis this morning without complication. One unit of cryo given. Trialysis catheter continues to ooze. Dressing changed twice this shift. He received one dose of PRN norco for rib pain. Tolerating meals well.
[2022-06-01 04:07] LABS: Hematocrit 24.5 % (37.0-53.0); Hemoglobin 8.3 g/dL (13.5-17.5); Mean Corpuscular HGB 30.3 pg (26.0-34.0); Mean Corpuscular HGB Conc 33.9 g/dL (31.5-36.5); Mean Corpuscular Volume 89 fL (80-100); Mean Platelet Volume 10.5 fL (9.1-12.4); Platelet Count 98 K/mm3 (150-400); RDW Coefficient Variation 13.6 % (11.7-14.2); RDW Standard Deviation 44.8 fL (35.1-46.3); Red Blood Cell Count 2.74 M/mm3 (4.30-5.90); White Blood Cell Count 16.26 K/mm3 (4.00-11.30)
[2022-06-01 04:27] LABS: Albumin, Blood 1.8 g/dL (3.4-5.0); Anion Gap 4 mmol/L (6-16); Blood Urea Nitrogen 42 mg/dL (8-24); Bun/Creatinine Ratio 13.2 (12.0-20.0); CO2, Blood 32 mmol/L (21-32); Chloride, Blood 101 mmol/L (98-108); Creatinine, Blood 3.18 mg/dL (0.60-1.20); Glomerular Filtration Rate 20 (60-); Glucose, Blood 108 mg/dL (70-99); Magnesium, Blood 2.1 mg/dL (1.6-2.4); Phosphorus, Blood 2.8 mg/dL (2.5-4.9); Sodium, Blood 137 mmol/L (136-145)
--- NOTE | 2022-06-01 06:20 | NUR ---
SHIFT SUMMARY A/OX4, PLEASANT AND COOPERATIVE WITH CARE. LUI PATENT AND DRAINING TO GRAVITY. TELE SR IN THE 60S. C/O STERNAL/RIB PAIN, MEDICATED PER EMAR X2. TRIALYSIS PORT CONTINUES TO OOZE BLOOD, DRESSING CHANGED X3. VSS, NO ACUTE CHANGES AT THIS TIME. BED IN LOWEST POSIITON WITH CALL LIGHT IN REACH. WILL CONTINUE TO MONITOR AND REPORT TO ONCOMING RN.
--- NOTE | 2022-06-01 07:20 | NUR ---
AM ASSESSMENT: Pt resting in bed, productive cough noted. Pt states that it is thick, yellow/romo sputum. This RN has not visualized sputum yet. HR reg with extra heart tones heard with auscultation. LS diminished. BT positive. Pulses palp. +3 pitting edema noted in BLE and L arm. Bruising noted on all extrimeties. Pt C/O chest pain "12/10" with cough. Will medicate per orders. Trialysis cath to R groin site, small amount of oozing noted. Plan for dialysis today at 0830. VSS. Will continue to monitor. Call light in reach.
--- NOTE | 2022-06-01 08:40 | NUR ---
pt taken to dialysis.
[2022-06-01 17:10] LABS: ANTIMYELOPEROXIDASE (MPO) ABS <0.2 units (0.0-0.9); ANTIPROTEINASE 3 (PR-3) ABS <0.2 units (0.0-0.9); ATYPICAL PANCA <1:20 titer (Neg:<1:20); CYTOPLASMIC (C-ANCA) <1:20 titer (Neg:<1:20); PERINUCLEAR (P-ANCA) <1:20 titer (Neg:<1:20)
--- NOTE | 2022-06-01 17:23 | NUR ---
PT TAKEN TO HEART CENTER, WILL AWAIT RETURN
[2022-06-02 00:04] LABS: Hematocrit 21.4 % (37.0-53.0); Hemoglobin 7.2 g/dL (13.5-17.5); Mean Platelet Volume 10.8 fL (9.1-12.4); Platelet Count 121 K/mm3 (150-400)
[2022-06-02 00:37] LABS: International Normalized Ratio 1.53; Prothrombin Time Results 15.6 Sec (9.7-11.5)
[2022-06-02 03:57] LABS: Hematocrit 20.8 % (37.0-53.0); Hemoglobin 7.1 g/dL (13.5-17.5); Mean Corpuscular HGB 30.3 pg (26.0-34.0); Mean Corpuscular HGB Conc 34.1 g/dL (31.5-36.5); Mean Corpuscular Volume 89 fL (80-100); Mean Platelet Volume 11.1 fL (9.1-12.4); Platelet Count 127 K/mm3 (150-400); RDW Coefficient Variation 13.3 % (11.7-14.2); RDW Standard Deviation 43.3 fL (35.1-46.3); Red Blood Cell Count 2.34 M/mm3 (4.30-5.90); White Blood Cell Count 17.14 K/mm3 (4.00-11.30)
[2022-06-02 04:31] LABS: Albumin, Blood 1.6 g/dL (3.4-5.0); Anion Gap 5 mmol/L (6-16); Blood Urea Nitrogen 38 mg/dL (8-24); Bun/Creatinine Ratio 12.8 (12.0-20.0); CO2, Blood 31 mmol/L (21-32); Calcium, Blood 6.9 mg/dL (8.5-10.1); Chloride, Blood 101 mmol/L (98-108); Creatinine, Blood 2.96 mg/dL (0.60-1.20); Glomerular Filtration Rate 22 (60-); Glucose, Blood 107 mg/dL (70-99); Phosphorus, Blood 3.3 mg/dL (2.5-4.9); Potassium, Blood 3.5 mmol/L (3.5-5.5); Sodium, Blood 137 mmol/L (136-145)
--- NOTE | 2022-06-02 06:47 | NUR ---
SHIFT SUMMARY A/OX4, BEDREST AT THIS TIME. PERMACATH TO RCW WITH SMALL AMOUNT OF BLOOD OOZING, PRESSURE DRESSING APPLIED. TRIALYSIS CATH TO R. GROIN WITH LARGE AMOUNT OF BLEEDING AT BEGINNING OF SHIFT. FEM STOP USED WELL NEW CRISSY DRESSING APPLIED. MINIMAL OOZING T/O REST OF THE NIGHT. TELE SR AT 75. C/O STERNAL/RIB PAIN, MEDICATED PER EMAR. VSS, NO ACUTE CHANGES AT THIS TIME. BED IN LOWEST POSITION WITH CALL LIGHT IN REACH. WILL CONTINUE TO MONITOR AND REPORT TO ONCOMING RN.
--- NOTE | 2022-06-02 09:25 | NUR ---
AM NOTE: PATIENT ALERT AND ORIENTED X4. DENIES NUMBNESS/TINGLING. BEDREST AT THIS TIME DUE TO RIGHT FEM CATH AND BLEEDING. OVERALL WEAKNESS. STRONG BILATERAL SNACK BAR ATTENDANT. PAIN SCATTERED THROUGHOUT. PATIENT STATES 8/10 THIS AM, MEDICATED PER EMAR. ON ROOM AIR SATING 93-94%. OCCASIONAL WEAK COUGH. LUNGS SOUNDING CLEAR AND DIM. TELE SHOWING SR WITH BBB AND PVC'S. HR 70-80'S. BP STABLE. PPP. DENIES CHEST PAIN/PRESSURE RELATED TO HEART. CHEST PAIN FROM MUSCULOSKELETAL. DENIES ABDOMINAL PAIN/NAUSEA THIS AM. EATING SMALL AMOUNT OF BREAKFAST. PILLS WHOLE. ATTENDS IN PLACE. USING BED KIDD FOR BOWEL MOVEMENTS. LUI CATH IN PLACE DRAINING TO GRAVITY. CATH CARE COMPLETED THIS AM. LEFT LARGE INGUINAL HERNIA. Q2 TURNING. SKIN OVERALL FRAGILE. BRUISING SCATTERED THROUGHOUT. RIGHT CHEST WALL DIALYSIS PERM CATH PLACED 06/01 [address] PRESSURE DRESSING IN PLACE. 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 NO SIGNS OF ACTIVE BLEEDING. WILL DISCUSS WITH DOCTORS IF RIGHT FEMORAL CATH CAN BE REMOVED TODAY. CALL LIGHT IN REACH. PATIENT ABLE TO MAKE NEEDS KNOWN. WILL CONTINUE TO MONITOR.
--- NOTE | 2022-06-02 11:21 | NUR ---
DR. ASIF BY TO SEE PATIENT. PLAN TO DC RIGHT FEM CENTRAL LINE. ICU CHARGE IVORY TO COME HELP THIS RN REMOVE. ALSO PLAN FOR LUI CATH TO BE REMOVED AND PATIENT TO WIRK WITH PT/OT. PATIENT UPDATED ON PLAN.
[2022-06-02 15:02] LABS: SARS-Cov-2 (COVID-19) PCR, MMC NEGATIVE (NEGATIVE)
--- NOTE | 2022-06-02 18:47 | NUR ---
SHIFT SUMMARY: NO ACUTE CHANGES THROUGHOUT SHIFT. PHYSICAL THERAPY BY TO WORK WITH PATIENT UP WALKING WITH FWW AND GAIT BELT. UP TO [facility] [place] PERSON ASSIST. RIGHT FEMORAL SITE WNL, NO BLEEDING NOTED SINCE DC CENTRAL LINE. PATIENT VOIDING AFTER LUI CATH REMOVAL. MEDICATED FOR GENRALIZED PAIN THROUGHOUT SHIFT. FRIEND IN TO VISIT AND UPDATED. EATING WNL. Q2 TURNING PATIENT ALLOWS. MEPILEX PLACED ON COCCYX FOR PREVENTION. SPEECH THERAPY IN AND PATIENT ORDERS UPDATED. CALL LIGHT IN REACH. VITALS REMAIN STABLE.
[2022-06-03 03:54] LABS: Hematocrit 19.9 % (37.0-53.0); Hemoglobin 6.8 g/dL (13.5-17.5)
[2022-06-03 04:22] LABS: Albumin, Blood 1.6 g/dL (3.4-5.0); Anion Gap 6 mmol/L (6-16); Blood Urea Nitrogen 47 mg/dL (8-24); Bun/Creatinine Ratio 13.3 (12.0-20.0); CO2, Blood 29 mmol/L (21-32); Calcium, Blood 7.1 mg/dL (8.5-10.1); Chloride, Blood 99 mmol/L (98-108); Creatinine, Blood 3.53 mg/dL (0.60-1.20); Glomerular Filtration Rate 18 (60-); Glucose, Blood 143 mg/dL (70-99); Phosphorus, Blood 3.7 mg/dL (2.5-4.9); Sodium, Blood 134 mmol/L (136-145)
--- NOTE | 2022-06-03 05:16 | NUR ---
SHIFT SUMMARY: PT A&O X4, VERY PLEASANT AND COOPERATIVE WITH CARE. PT SLEPT ON AND OFF THROUGHOUT THE NIGHT. PT USING CALL LIGHT APPROPRIATELY. PT UP TO BEDSIDE COMMODE ONCE THIS SHIFT WITH 1 PERSON ASSIST. PT MORNING LABS CAME BACK WITH HGB AT 6.8; DR PAL NOTIFED AND ORDERS RECIEVED FOR 1 UNITD PRBC AND TYPE AND SCREEN. VSS THROUGHOUT THE NIGHT, NO ACUTE CHANGES. WILL CONTINUE TO MONITOR UNTI REPORT GIVEN TO ONCOMING RN.
--- NOTE | 2022-06-03 10:11 | NUR ---
AM NOTE: PATIENT ALERT AND ORIENTED X4. GENERAL PAIN THROUGHOUT CHEST/BACK. MEDICATED PER EMAR. ONE PERSON ASSIST TO BEDSIDE COMMODE. DENIES N/T. ON ROOM AIR SATING 94-96% THIS AM. OCCASIONAL MOIST WET COUGH. SPEECH THERAPY SEEING PATIENT. DENIES SOB. TELE SHOWING SR WITH HR 70-80'S. COMPLAINS OF CHEST PAIN RELATED TO COMPRESSIONS PATIENT RECIEVED. PPP. MILD EDEMA TO BLE/FOREARMS. BP STABLE. DIALYSIS THIS AM. RIGHT IJ DIALYSIS CATH WNL. DENIES ABDOMINAL PAIN/NAUSEA. EATING WNL. UP TO [facility] FOR BOWEL MOVEMENT THIS AM. ONE UNIT OF PRBC TO BE INFUSED DURING DIALYSIS. RIGTH GROIN SITE FROM CENTRAL LINE REMOVAL ON 06/02 WNL. NO SIGNS OF BLEEDING. PATIENT CONTINUES TO VOID POST REMOVAL OF FOLRY CATH ON 06/02. SCATTERED BRUISING THROUGHOUT. Q2 TURNS WITH MEPILEX ON COCCYX. LEFT INGUINAL HERNIA. PATIENT AT DIALYSIS AT THIS TIME.
--- NOTE | 2022-06-03 12:02 | NUR ---
PATIENT BACK FROM DIALYSIS. VITAL SIGNS REMAIN STABLE. EATING LUNCH AT THIS TIME. WILL CONTACT PT ROOM MATE MILES POST LUNCH TO GO OVER MED REC.
[2022-06-03] MEDS ORDERED: HYDRA50 PO (13:59)
[2022-06-03] MEDS ORDERED: ASPI81CH PO (14:00)
[2022-06-03] MEDS ORDERED: ATOR20 PO (14:00)
--- NOTE | 2022-06-03 17:38 | NUR ---
SHIFT SUMMARY: NO ACUTE CHANGES, SEE PREVIOUS NOTES FOR UPDATES. VITAL SIGNS REMAIN STABLE. UP TO CHAIR OR EDGE OF BED FOR MEALS. DIALYSIS TODAY. MED REC COMPLETE AND ACCURATE. VISITORS IN THROUGHOUT DAY. MEDICATED FOR PAIN THROUGHOUT SHIFT. REMAINS ON ROOM AIR. TELE CONTINUES TO SHOW SR WITH HR 70'S.
[2022-06-04 03:51] LABS: BASOPHILS ABSOLUTE AUTO 0.04 K/mm3 (0.00-0.23); BASOPHILS PERCENT AUTO 0 % (0-2); EOSINOPHILS ABSOLUTE AUTO 0.39 K/mm3 (0.00-0.68); EOSINOPHILS PERCENT AUTO 3 % (0-6); Hematocrit 21.9 % (37.0-53.0); Hemoglobin 7.4 g/dL (13.5-17.5); IMMATURE GRAN PERCENT AUTO 3 % (0-1); LYMPHOCYTES ABSOLUTE AUTO 1.27 K/mm3 (0.84-5.20); LYMPHOCYTES PERCENT AUTO 9 % (21-46); MONOCYTES ABSOLUTE AUTO 1.11 K/mm3 (0.16-1.47); MONOCYTES PERCENT AUTO 8 % (4-13); Mean Corpuscular HGB 30.5 pg (26.0-34.0); Mean Corpuscular HGB Conc 33.8 g/dL (31.5-36.5); Mean Corpuscular Volume 90 fL (80-100); Mean Platelet Volume 10.1 fL (9.1-12.4); NEUTROPHILS ABSOLUTE AUTO 11.06 K/mm3 (1.96-9.15); NEUTROPHILS PERCENT AUTO 78 % (41-73); NRBC ABSOLUTE 0.02 K/mm3 (0.00-0.02); NRBC Auto 0.1 /100 WBC (0.0-0.2); Platelet Count 186 K/mm3 (150-400); RDW Coefficient Variation 14.6 % (11.7-14.2); RDW Standard Deviation 47.4 fL (35.1-46.3); Red Blood Cell Count 2.43 M/mm3 (4.30-5.90); White Blood Cell Count 14.27 K/mm3 (4.00-11.30)
[2022-06-04 04:27] LABS: Albumin, Blood 1.6 g/dL (3.4-5.0); Anion Gap 6 mmol/L (6-16); Blood Urea Nitrogen 32 mg/dL (8-24); Bun/Creatinine Ratio 11.1 (12.0-20.0); CO2, Blood 28 mmol/L (21-32); Calcium, Blood 7.1 mg/dL (8.5-10.1); Chloride, Blood 102 mmol/L (98-108); Creatinine, Blood 2.88 mg/dL (0.60-1.20); Glomerular Filtration Rate 22 (60-); Glucose, Blood 99 mg/dL (70-99); Magnesium, Blood 1.8 mg/dL (1.6-2.4); Phosphorus, Blood 3.1 mg/dL (2.5-4.9); Potassium, Blood 4.1 mmol/L (3.5-5.5); Sodium, Blood 136 mmol/L (136-145)
--- NOTE | 2022-06-04 04:41 | NUR ---
SHIFT SUMMARY NO ACUTE CHANGES THIS SHIFT. VSS. AXO. CHEST/GENERALIZED PAIN CONTINUE S/P CARDIAC ARREST.CONTROLLED BY PO MEDICATION. REMAINS SR. ON RA. VOIDING/CONTINENT. R GROIN SITE POST TRIALYSIS REMOVAL STABLE. NO CHANGHES. NO HEMATOMA NOTED. RCW PERMACATH CDI. PT HAS BEEN UP AND OOB THIS SHIFT TO [facility], NO EVENT NOTED. BECOMING MORE STABLE ON FOOT. OTHERWISE, PT RESTING COMFORTABLY POST PAIN MEDICATION ADMINISTRATION. PT PLEASANT AND COOPERATIVE AND REMAINS HOPEFUL FOR CONTINUED REHAB AND DC.
--- NOTE | 2022-06-04 08:30 | NUR ---
ASSUMED CARE REPORT FROM PAULETTE MCMILLAN AT 0700. PT RESTING IN BED. WAKES c VERBAL STIMULI. A&OX 4. ANSWERS QUESTIONS APPROPRIATELY, FOLLOWS COMMANDS. PT C/O SUBSTERNAL CP, REPRODUCED c PALPATION. STATES PAIN IS 5/10. DENIES NEED FOR PAIN MEDS AT THIS TIME. SR ON MONITOR, BP STABLE. LUNGS CLEAR. ABD ROUND, SOFT, NON TENDER. BT X 4. INGUINAL HERNIA NOTED. RIGHT GROIN SITE WNL. PERMACATH TO RIGHT CHEST WALL, DRESSING C/D/I. PLAN FOR DIALYSIS AT 1000. EDEMA TO BILATERAL FOREARMS. 1+ TO BLE. PT AMB IN ROOM c WALKER, STANDBY ASSIST. UP TO CHAIR FOR BREAKFAST. WILL CONTINUE TO MONITOR.
--- NOTE | 2022-06-04 17:44 | NUR ---
SHIFT SUMMARY NO ACUTE CHANGES THIS SHIFT. STATUS CHANGED TO MED c TELE. SR, RATE 70'S, BP STABLE. LUNGS CLEAR, ON RA. C/O PAIN AFTER COUGHING SPELLS, GIVEN NORCO ONCE THIS SHIFT c GOOD RELIEF. DIALYSIS COMPLETE, 2L OFF. AMB IN ROOM c WALKER AND STANDBY ASSIST. WORKED c PT/OT. NEURO WNL. PERMACATH TO RIGHT CHEST WALL. GROIN SITE WNL. WILL CONTINUE TO MONITOR UNTIL REPORT TO ONCOMING NURSE.
--- NOTE | 2022-06-04 18:24 | NUR ---
REPORT TO JOMAR MCMILLAN, [facility] TRANSFERRED c PT TO 363.
--- NOTE | 2022-06-04 18:30 | NUR ---
REPORT FROM VALENTE DELUCA RN, PATIENT TO BE TRANSFERRED TO ROOM 363
--- NOTE | 2022-06-04 21:28 | NUR ---
director business development called to inform this RN that patient's QTc has widened to 0.54 from 0.50 this morning. night hospitalist notified per protocol. patient not symptomatic
[2022-06-05 04:51] LABS: BASOPHILS ABSOLUTE AUTO 0.02 K/mm3 (0.00-0.23); BASOPHILS PERCENT AUTO 0 % (0-2); EOSINOPHILS ABSOLUTE AUTO 0.27 K/mm3 (0.00-0.68); EOSINOPHILS PERCENT AUTO 2 % (0-6); Hematocrit 22.1 % (37.0-53.0); Hemoglobin 7.4 g/dL (13.5-17.5); IMMATURE GRAN PERCENT AUTO 2 % (0-1); LYMPHOCYTES ABSOLUTE AUTO 1.12 K/mm3 (0.84-5.20); LYMPHOCYTES PERCENT AUTO 9 % (21-46); MONOCYTES ABSOLUTE AUTO 1.17 K/mm3 (0.16-1.47); MONOCYTES PERCENT AUTO 10 % (4-13); Mean Corpuscular HGB 29.8 pg (26.0-34.0); Mean Corpuscular HGB Conc 33.5 g/dL (31.5-36.5); Mean Corpuscular Volume 89 fL (80-100); Mean Platelet Volume 10.1 fL (9.1-12.4); NEUTROPHILS PERCENT AUTO 77 % (41-73); Platelet Count 222 K/mm3 (150-400); RDW Coefficient Variation 14.6 % (11.7-14.2); RDW Standard Deviation 46.5 fL (35.1-46.3); Red Blood Cell Count 2.48 M/mm3 (4.30-5.90); White Blood Cell Count 12.18 K/mm3 (4.00-11.30)
[2022-06-05 05:17] LABS: Albumin, Blood 1.8 g/dL (3.4-5.0); Albumin/Globulin Ratio 0.5 (0.8-1.8); Bilirubin, Total 0.5 mg/dL (0.1-1.0); Calcium, Blood 6.9 mg/dL (8.5-10.1); Creatinine, Blood 2.81 mg/dL (0.60-1.20); Globulin, Blood 3.4 g/dL (2.2-4.0); Potassium, Blood 4.2 mmol/L (3.5-5.5); Total Protein, Blood 5.2 g/dL (6.4-8.2)
[2022-06-05 13:06] LABS: Percent Saturation 8.7 % (20.0-50.0)
--- NOTE | 2022-06-05 15:16 | NUR ---
PLEASANT AND COOPERATIVE TO CARE, WORKED WITH PT, AMBULATED IN HALLS WITH STANDBY ASSIST AND FWW, MAKES NEEDS KNOWN, MEDICATED FOR RIB PAIN BULMARO, CALL LIGHT WITH IN REACH
--- NOTE | 2022-06-05 18:40 | NUR ---
ALERT AND ORIENTED, PLEASANT TO ALL CARE, AMBULATED IN HALLS WITH STAND BY ASSIST AND PT, MEDICATED X3 NORCOS FOR RIB PAIN FROM CPR. PATIENT USES THE CALL LIGHT APPROPRIATELY. FRIENDS VISITED TODAY. STARTED IRON INFUSIONS TODAY, NO DIALYSIS TODAY PER DR ROBBINS, CALL LIGHT WITH IN REACH, PATIENT USES CALL LIGHT APPROPRIATELY. WILL RELAY TO PM HIPOLITO
[2022-06-06 05:03] LABS: Hematocrit 24.2 % (37.0-53.0); Hemoglobin 8.1 g/dL (13.5-17.5)
[2022-06-06 05:32] LABS: Albumin, Blood 1.8 g/dL (3.4-5.0); Anion Gap 7 mmol/L (6-16); Blood Urea Nitrogen 38 mg/dL (8-24); Bun/Creatinine Ratio 10.5 (12.0-20.0); CO2, Blood 28 mmol/L (21-32); Calcium, Blood 7.1 mg/dL (8.5-10.1); Chloride, Blood 101 mmol/L (98-108); Creatinine, Blood 3.61 mg/dL (0.60-1.20); Glomerular Filtration Rate 17 (60-); Glucose, Blood 99 mg/dL (70-99); Magnesium, Blood 1.8 mg/dL (1.6-2.4); Phosphorus, Blood 4.5 mg/dL (2.5-4.9); Potassium, Blood 4.7 mmol/L (3.5-5.5); Sodium, Blood 136 mmol/L (136-145)
--- NOTE | 2022-06-06 05:47 | NUR ---
SHIFT SUMMARY 62 YR M ADMITTED ON 05/25/22 FOR AFIB ARREST AND BOLA. FULL CODE. NO ACUTE CHANGES THIS SHIFT. PT WAS HAPPY THAT THE PT IN THE NEXT ROOM LEFT HE WAS VERY LOUD THE NIGHT BEFORE AND CAUSED DISTURBANCES THAT DID NOT ALLOW THE PT TO GET ANY SLEEP. HE PREFERS TO AMBULATE TO THE BATHROOM INDEPENDANTLY AND IS STEADY ON HIS FEET. HE IS VERY PLEASANT AND COOPERATIVE WITH CARE. HE C/O CHEST PAIN WHEN HE COUGHS A RESULT OF PRIOR CPR. OTHER THAN THAT HE HAS HAD NO COMPLAINTS AT ALL.HE CALLS APPROPRIATELY FOR ASSISSTANCE WHEN NEEDED.
--- NOTE | 2022-06-06 17:35 | NUR ---
ALERT AND ORIENTED, MAKES NEEDS KNOWN, WORKED WITH PT TODAY, AMBULATED IN HALLS STAND BY ASSIST, CHEST PAIN FROM COUGHING AND CPR, MEDICATED WITH NORCO X2, DR BO ROUNDED ON PATIENT, PLAN TO INCREASE STRENGTH AND POSSIBLE DISCHARGED HOME IN 2 DAYS. PILLS WHOLE WITH APPLESAUCE, CALL LIGHT WITH IN REACH, WILL RELAY TO PM RN
[2022-06-07 05:14] LABS: Hematocrit 23.1 % (37.0-53.0); Hemoglobin 7.7 g/dL (13.5-17.5)
[2022-06-07 05:35] LABS: Albumin, Blood 1.7 g/dL (3.4-5.0); Anion Gap 7 mmol/L (6-16); Blood Urea Nitrogen 41 mg/dL (8-24); Bun/Creatinine Ratio 11.7 (12.0-20.0); CO2, Blood 25 mmol/L (21-32); Calcium, Blood 6.6 mg/dL (8.5-10.1); Chloride, Blood 102 mmol/L (98-108); Creatinine, Blood 3.51 mg/dL (0.60-1.20); Glomerular Filtration Rate 18 (60-); Glucose, Blood 97 mg/dL (70-99); Magnesium, Blood 1.9 mg/dL (1.6-2.4); Phosphorus, Blood 3.7 mg/dL (2.5-4.9); Potassium, Blood 4.8 mmol/L (3.5-5.5); Sodium, Blood 134 mmol/L (136-145)
--- NOTE | 2022-06-07 05:46 | NUR ---
SUMMARY: PT A/OX4, CALLS APPROPRIATELY TO SPECIFY NEEDS AND IS PLEASANT AND COOPERATIVE W/CARE. HE CONT'S TO REPORT RIB AND BACK PAIN POST CPR WHICH IS EXACERBATED BY COUGHING. PRN BULMARO RECIEVED X2 FOR TOLERABLE RELIEF. HE REMAINS NSR AT 60'S-70'S BPM. DX TO PREVIOUSLY REMOVED R.GROIN TRIALYSIS SITE REMAINS C/D/I AND R.CW PERMCATH IS STABLE AND INTACT. NO ACUTE CHANGES, VSS AND AFEBRILE. WCTM AND REPORT TO DAY RN.
[2022-06-07] MEDS ORDERED: Amiodarone HCl200 MG PO (14:02)
[2022-06-07] MEDS ORDERED: ATOR40TA PO (14:03)
[2022-06-07] MEDS ORDERED: CALCITRIOL0.5 MC1 PO (14:04)
[2022-06-07] MEDS ORDERED: LOSA25 PO (14:05)
[2022-06-07] MEDS ORDERED: ISOSORBIDE MONO60 MG PO (14:06)
[2022-06-07] MEDS ORDERED: METO50ER PO (14:07)
[2022-06-07] MEDS ORDERED: CALCIUM CARBON500 M1 PO (14:09)
--- NOTE | 2022-06-07 16:38 | NUR ---
PATIENT WAS DISCHARGED TO HOME. HIS ROOM MATE CAME TO PICK HIM UP. CARE MANGTERESE MUJICA CAME TO ROOM TO SPEAK WITH PATIENT ABOUT OBTAINING A PCP. [facility] [place] IS NOT OPEN TODAY. SHE ADVISED PATIENT TO CALL IN THE AM AND MAKE AN APPOINTMENT FOR A NEW PCP. NUMBER PLACED WITH DISCHARGE ORDERS. MEDICATION LIST FAXED TO [facility] AND PATIENT WILL [employer] [facility]PER[facility] ON WAY HOME. HE IS OUT TO VEHICLE VIA WHEEL CHAIR.
== END 2022-06-07 14:32 | disposition home health service (06) | DRG 260 ==
LOC: ER 00:05 → MEDS 01:58 → PCU 01:58 → ICUE 01:58 → ICUW 01:58 → ICUE 03:42 → PCU 05-27 22:15 → MEDS 06-04 18:56
PROVIDERS: Family Medicine; Internal Medicine; Internal Medicine Cardiovascular Disease; Internal Medicine Critical Care Medicine; Internal Medicine Nephrology; Student in an Organized Health Care Education/Training Program; ADMIT Internal Medicine
PROC: 4A023N7 Measurement of Cardiac Sampling and Pressure, Left Heart, Percutaneous Approach (ICD-10-PCS; 2022-05-25)
PROC: 5A1223Z Performance of Cardiac Pacing, Continuous (ICD-10-PCS; 2022-05-25)
PROC: B2111ZZ Fluoroscopy of Multiple Coronary Arteries using Low Osmolar Contrast (ICD-10-PCS; 2022-05-25)
PROC: 5A12012 Performance of Cardiac Output, Single, Manual (ICD-10-PCS; 2022-05-25)
PROC: 5A1935Z Respiratory Ventilation, Less than 24 Consecutive Hours (ICD-10-PCS; 2022-05-25)
PROC: 02H63JZ Insertion of Pacemaker Lead into Right Atrium, Percutaneous Approach (ICD-10-PCS; 2022-05-25)
PROC: 5A2204Z Restoration of Cardiac Rhythm, Single (ICD-10-PCS; 2022-05-25)
PROC: 30233K1 Transfusion of Nonautologous Frozen Plasma into Peripheral Vein, Percutaneous Approach (ICD-10-PCS; 2022-05-29)
PROC: 30233R1 Transfusion of Nonautologous Platelets into Peripheral Vein, Percutaneous Approach (ICD-10-PCS; 2022-05-29)
PROC: 30233M1 Transfusion of Nonautologous Plasma Cryoprecipitate into Peripheral Vein, Percutaneous Approach (ICD-10-PCS; 2022-05-29)
PROC: 0JH63XZ Insertion of Tunneled Vascular Access Device into Chest Subcutaneous Tissue and Fascia, Percutaneous Approach (ICD-10-PCS; 2022-06-01)
PROC: 02HV33Z Insertion of Infusion Device into Superior Vena Cava, Percutaneous Approach (ICD-10-PCS; 2022-06-01)
PROC: B518ZZA Fluoroscopy of Superior Vena Cava, Guidance (ICD-10-PCS; 2022-06-01)
PROC: B548ZZA Ultrasonography of Superior Vena Cava, Guidance (ICD-10-PCS; 2022-06-01)
PROC: 06H03DZ Insertion of Intraluminal Device into Inferior Vena Cava, Percutaneous Approach (ICD-10-PCS; 2022-06-01)
PROC: B519YZA Fluoroscopy of Inferior Vena Cava using Other Contrast, Guidance (ICD-10-PCS; 2022-06-01)
PROC: 5A1D70Z Performance of Urinary Filtration, Intermittent, Less than 6 Hours Per Day (ICD-10-PCS; 2022-06-01)
PROC: 30233N1 Transfusion of Nonautologous Red Blood Cells into Peripheral Vein, Percutaneous Approach (ICD-10-PCS; principal; 2022-06-03)
DX: I49.01 Ventricular fibrillation (principal); D65 Disseminated intravascular coagulation [defibrination syndrome]; I21.4 Non-ST elevation (NSTEMI) myocardial infarction; I50.43 Acute on chronic combined systolic (congestive) and diastolic (congestive) heart failure; J96.01 Acute respiratory failure with hypoxia; N17.0 Acute kidney failure with tubular necrosis; N18.6 End stage renal disease; R57.9 Shock, unspecified; R78.81 Bacteremia; E87.20 Acidosis, unspecified; E44.0 Moderate protein-calorie malnutrition; D62 Acute posthemorrhagic anemia; T82.838A Hemorrhage due to vascular prosthetic devices, implants and grafts, initial encounter; I82.411 Acute embolism and thrombosis of right femoral vein; E87.1 Hypo-osmolality and hyponatremia; I13.2 Hypertensive heart and chronic kidney disease with heart failure and with stage 5 chronic kidney disease, or end stage renal disease; G93.40 Encephalopathy, unspecified; Z51.5 Encounter for palliative care; I25.10 Atherosclerotic heart disease of native coronary artery without angina pectoris; I46.2 Cardiac arrest due to underlying cardiac condition; I25.5 Ischemic cardiomyopathy; J44.9 Chronic obstructive pulmonary disease, unspecified; F17.210 Nicotine dependence, cigarettes, uncomplicated; Z68.24 Body mass index [BMI] 24.0-24.9, adult; E87.5 Hyperkalemia; E78.5 Hyperlipidemia, unspecified; D50.9 Iron deficiency anemia, unspecified; D63.1 Anemia in chronic kidney disease; I49.9 Cardiac arrhythmia, unspecified; E88.09 Other disorders of plasma-protein metabolism, not elsewhere classified; R10.9 Unspecified abdominal pain; E83.51 Hypocalcemia; E83.39 Other disorders of phosphorus metabolism; B96.1 Klebsiella pneumoniae [K. pneumoniae] as the cause of diseases classified elsewhere; Z20.822 Contact with and (suspected) exposure to COVID-19; Z79.82 Long term (current) use of aspirin; Z79.899 Other long term (current) drug therapy; Z79.51 Long term (current) use of inhaled steroids; Z95.5 Presence of coronary angioplasty implant and graft; Z99.2 Dependence on renal dialysis; Z86.73 Personal history of transient ischemic attack (TIA), and cerebral infarction without residual deficits; I25.2 Old myocardial infarction; Z79.02 Long term (current) use of antithrombotics/antiplatelets; Z79.811 Long term (current) use of aromatase inhibitors; Z79.52 Long term (current) use of systemic steroids; Z98.890 Other specified postprocedural states
CPT/HCPCS: 33210; 36415; 36416; 36430; 36556; 36600; 71045; 76705; 76770; 76937; 80048; 80053; 80069; 80074; 81001; 81050; 82435; 82570; 82728; 82803; 82947; 83516; 83520; 83540; 83550; 83735; 83880; 84100; 84132; 84156; 84295; 84300; 84484; 84540; 85007; 85014; 85018; 85025; 85027; 85049; 85347; 85362; 85384; 85610; 85730; 86022; 86037; 86038; 86317; 86334; 86335; 86850; 86900; 86901; 86923; 87040; 87077; 87086; 87186; 92526; 92610; 93005; 93010; 93306; 93458; 93971; 94002; 94644; 94664; 96365; 96366; 96368; 96375; 97110; 97116; 97162; 97166; 97530; 97535; 99152; 99153; 99291-25; A9270; C1750; C1752; C1769; C1880; C1887; C1894; J0171; J0282; J0610; J0881; J1644; J1815; J1940; J2250; J2543; J2704; J2916; J2930; J3010; J3470; J7030; J7042; J7050; J7060; J7799; P9012; P9016; P9035; Q9967; U0004

== ENCOUNTER 2022-06-09 | Emergency (ER) | payer MEDICARE ==
[~2022-06-09] VITALS: Ht 182.9 cm; Wt 70.3 kg
[~2022-06-09] MED LIST changes: +ATOR20 PO; +ATOR40TA PO; +Amiodarone HCl200 MG PO; +CALCITRIOL0.5 MC1 PO; +CALCIUM CARBON500 M1 PO; +HYDRA50 PO; +ISOSORBIDE MONO60 MG PO; +LOSA25 PO; +METO50ER PO
[2022-06-09 01:21] LABS: Hematocrit 24.6 % (37.0-53.0); Hemoglobin 8.1 g/dL (13.5-17.5); Mean Corpuscular HGB 30.1 pg (26.0-34.0); Mean Corpuscular HGB Conc 32.9 g/dL (31.5-36.5); Mean Corpuscular Volume 91 fL (80-100); Mean Platelet Volume 9.2 fL (9.1-12.4); Platelet Count 270 K/mm3 (150-400); RDW Coefficient Variation 14.7 % (11.7-14.2); Red Blood Cell Count 2.69 M/mm3 (4.30-5.90); White Blood Cell Count 9.66 K/mm3 (4.00-11.30)
[2022-06-09 01:38] LABS: Albumin, Blood 1.9 g/dL (3.4-5.0); Albumin/Globulin Ratio 0.4 (0.8-1.8); Bilirubin, Total 0.4 mg/dL (0.1-1.0); Bun/Creatinine Ratio 10.5 (12.0-20.0); Calcium, Blood 7.4 mg/dL (8.5-10.1); Creatinine, Blood 3.05 mg/dL (0.60-1.20); Globulin, Blood 4.4 g/dL (2.2-4.0); Total Protein, Blood 6.3 g/dL (6.4-8.2)
[2022-06-09 01:46] LABS: BAND PERCENT MAN 1 % (0-8); BASOPHILS ABSOLUTE MAN 0.19 K/mm3 (0.00-0.23); BASOPHILS PERCENT MAN 2 % (0-2); EOSINOPHILS PERCENT MAN 0 % (0-6); LYMPHOCYTES ABSOLUTE MAN 1.15 K/mm3 (0.84-5.20); LYMPHOCYTES PERCENT MAN 12 % (21-46); MONOCYTES ABSOLUTE MAN 0.57 K/mm3 (0.16-1.47); MONOCYTES PERCENT MAN 6 % (4-13); NEUTROPHILS ABSOLUTE MAN 7.72 K/mm3 (1.96-9.15); SEG NEUTROPHILS PERCENT MAN 79 % (41-73); TOTAL CELLS COUNTED 100
== END 2022-06-09 03:41 | disposition home or self-care (01) ==
LOC: ER
PROVIDERS: Emergency Medicine
DX: R60.0 Localized edema (principal); Z99.2 Dependence on renal dialysis; Z79.52 Long term (current) use of systemic steroids; Z79.899 Other long term (current) drug therapy
CPT/HCPCS: 71045; 80053; 83880; 84484; 85025; 93005; 93010; A9270

== ENCOUNTER 2023-10-08 00:01 | Emergency (ER) | payer MEDICARE ==
[~2023-10-08] VITALS: Ht 170.2 cm; Wt 65.8 kg
[2023-10-08 00:38] LABS: BASOPHILS ABSOLUTE AUTO 0.02 K/mm3 (0.00-0.23); BASOPHILS PERCENT AUTO 0 % (0-2); EOSINOPHILS ABSOLUTE AUTO 0.12 K/mm3 (0.00-0.68); EOSINOPHILS PERCENT AUTO 2 % (0-6); Hematocrit 25.5 % (37.0-53.0); IMMATURE GRAN ABSOLUTE AUTO 0.03 K/mm3 (0.00-0.10); IMMATURE GRAN PERCENT AUTO 0 % (0-1); LYMPHOCYTES ABSOLUTE AUTO 1.85 K/mm3 (0.84-5.20); LYMPHOCYTES PERCENT AUTO 27 % (21-46); MONOCYTES ABSOLUTE AUTO 0.45 K/mm3 (0.16-1.47); MONOCYTES PERCENT AUTO 7 % (4-13); Mean Corpuscular HGB 29.6 pg (26.0-34.0); Mean Corpuscular HGB Conc 31.4 g/dL (31.5-36.5); Mean Corpuscular Volume 94 fL (80-100); Mean Platelet Volume 9.9 fL (9.1-12.4); NEUTROPHILS ABSOLUTE AUTO 4.41 K/mm3 (1.96-9.15); NEUTROPHILS PERCENT AUTO 64 % (41-73); Platelet Count 205 K/mm3 (150-400); RDW Standard Deviation 47.2 fL (35.1-46.3); White Blood Cell Count 6.88 K/mm3 (4.00-11.30)
[2023-10-08 01:34] LABS: Albumin, Blood 2.4 g/dL (3.4-5.0); Albumin/Globulin Ratio 0.6 (0.8-1.8); Bilirubin, Total 0.5 mg/dL (0.1-1.0); Bun/Creatinine Ratio 9.5 (12.0-20.0); Calcium, Blood 7.5 mg/dL (8.5-10.1); Creatinine, Blood 3.38 mg/dL (0.60-1.20); Globulin, Blood 4.3 g/dL (2.2-4.0); Magnesium, Blood 1.9 mg/dL (1.6-2.4); Potassium, Blood 4.1 mmol/L (3.5-5.5); Total Protein, Blood 6.7 g/dL (6.4-8.2)
[2023-10-08 03:30] VITALS: BP 122/74
== END 2023-10-08 06:17 | disposition home or self-care (01) ==
LOC: ER 00:01
PROVIDERS: Emergency Medicine
DX: I13.2 Hypertensive heart and chronic kidney disease with heart failure and with stage 5 chronic kidney disease, or end stage renal disease (principal); I50.20 Unspecified systolic (congestive) heart failure; N18.6 End stage renal disease; J90 Pleural effusion, not elsewhere classified; I25.2 Old myocardial infarction; J44.9 Chronic obstructive pulmonary disease, unspecified; Z99.2 Dependence on renal dialysis; F17.200 Nicotine dependence, unspecified, uncomplicated; Z79.82 Long term (current) use of aspirin; Z79.899 Other long term (current) drug therapy
CPT/HCPCS: 71046; 71250; 80053; 83605; 83735; 83880; 84145; 84484; 85025; 93005; 93010; 99285-25